=== PATIENT | female | born 1975 | race Caucasian/White ===

== ENCOUNTER 2017-04-24 05:05 | Inpatient (IN) | payer OTHER ==
[~2017-04-24] VITALS: Ht 170.2 cm; Wt 142.1 kg
[2017-04-24] VITALS (8 sets, daily range): BP systolic 111–133; BP diastolic 47–81
--- NOTE | ~2017-04-24 | S ---
[facility] [place] [address] SURGICAL PATH RPT PROCEDURE Name: MOLLY KU Room #: 416-P [facility] IN M.R.#: [id number] Admission: 04/24/17 Date of : 71 Discharge: 04/25/17 Report #: [id number] Path Case #: [id number] PATHOLOGY REPORT COLLECTION DATE: 04/24/2017 RECEIVED DATE: 04/24/2017 SUBMITTING PHYS: Dr. Jessica Velez OTHER PHYS: Dr. Espinoza Wei SPECIMEN(S) RECEIVED: A.Gastric sleeve * * * * * * * * * * * * FINAL DIAGNOSIS: "Gastric sleeve", partial gastrectomy: - Gastric mucosa, submucosa and muscular wall with multiple fundic gland polyps; no dysplasia seen. (CLW:alex; 04/27/2017) PATHOLOGIST: Marisa Adames M.D. REPORT ELECTRONICALLY SIGNED BY: Marisa Adames M.D. DATE/TIME: 04/27/2017 21:23 * * * * * * * * * * * * GROSS PATHOLOGY: Received in formalin labeled "Molly Ku, gastric sleeve" is a partial gastrectomy specimen measuring 22.5 x 6.5 x 2.6 cm. There is a staple line measuring 18.2 cm in length on one aspect. The staple line is removed, and the specimen is opened to reveal a kasper-brown mucosal surface with prominent folding, and two polyps which measure 0.3 x 0.2 x 0.2 cm and 0.7 x 0.6 x 0.5 cm. Additionally present is a 5.0 x 4.6 cm slightly hemorrhagic area on the mucosa. No perforations or other abnormalities are identified. Telecommunications Field Engineer sections of the specimen are submitted as follows: A1 smaller polyps submitted entirely A2 larger polyp, bisected A3 additional route sales representative mucosa with hemorrhage [place] [place] CLINICAL HISTORY: Morbid obesity INITIAL CPT CODE(S): A; 14469 [facility] at [address] [address] SURGICAL PATH RPT PROCEDURE Name: MOLLY KU Room #: 416-[facility] IN M.R.#: [id number] Admission: 04/24/17 Date of : 71 Discharge: 04/25/17 Report #: [id number] Path Case #: [id number] [address], [place] [address] Technical services performed by [facility] at [address] [place] [address], [address] [address]. [facility] [address] [address] PHONE: [phone] DIRECTOR: Larry Slater M.D. * * * END OF REPORT * * *
--- NOTE | ~2017-04-24 | O ---
[facility] [place] [address] OPERATIVE REPORT Name: MOLLY KU Room #: 416-P [facility] IN M.R.#: [id number] Admission: 04/24/17 Attend Phys: Jessica Velez MD, Discharge: Date of : 71 Report #: [id number] THIS REPORT FOR: //name// CC: Federico Velez DATE OF SERVICE: 04/24/2017 PREOPERATIVE DIAGNOSES: 1. Hypertension. 2. Gastroesophageal reflux disease. 3. Hypercholesterolemia. 4. Chronic pain syndrome. 5. Depression with anxiety. 6. Asthma. 7. Morbid obesity with a BMI of 50.87. POSTOPERATIVE DIAGNOSES: 1. Hypertension. 2. Gastroesophageal reflux disease. 3. Hypercholesterolemia. 4. Chronic pain syndrome. 5. Depression with anxiety. 6. Asthma. 7. Morbid obesity with a BMI of 50.87. PROCEDURES PERFORMED: 1. Laparoscopic sleeve gastrectomy. 2. Thorough esophagogastroduodenoscopy (EGD). SURGEON: Jessica Velez M.D. FORK OPERATOR: Espinoza Kelly M.D. ANESTHESIA: General endotracheal anesthesia. ESTIMATED BLOOD LOSS: Minimal (less than 10 mL). COMPLICATIONS: None appreciated. SPECIMENS: Lateral two-thirds of the gastric resection specimen to pathology. INDICATIONS: The patient is a 42-year-old morbidly obese female who has been seen for her desire for weight loss surgery as she has had a very long history of obesity and has tried numerous weight loss attempts, all to no avail. The patient has greater than 100 pounds over her ideal body weight with a BMI [facility] [address] [place] [address] OPERATIVE REPORT Name: MOLLY KU Room #: 416-P ADM IN M.R.#: [id number] Admission: 04/24/17 Attend Phys: Jessica Velez MD, Discharge: Date of : 71 Report #: [id number] of greater than 50 and carries numerous comorbid conditions associated with her obesity as delineated above. The patient has been seen by her primary care physician as well as by a benefits officer and a psychologist who have all evaluated her and cleared her to proceed forward with bariatric surgery for weight loss and assistance with resolution of her comorbid conditions. She has also undergone numerous months of physician supervised diet and exercise under my guidance with no real weight loss thus far. Indication was, therefore, for the above-mentioned procedures today. DESCRIPTION OF PROCEDURE: After explaining the risks, benefits and alternatives of the procedure with the patient in detail in the preoperative holding area and obtaining written consent, the patient was brought to the operating room and placed supine on the operating room table. After conducting a thorough timeout procedure verifying correct patient and procedure, the patient was given general endotracheal anesthesia. Once adequate anesthesia was obtained, her SCDs were hooked up to pneumatic compression device. She was given a preoperative dose of antibiotics in line with the SCIP protocol. The patient's abdomen was then prepped and draped in standard surgical sterile fashion after positioning her in the low lithotomy position with her legs in the Yellofin stirrups. I began the procedure by performing a thorough EGD. The [employer] upper endoscope was used to intubate the oropharynx and was traversed down into the esophagus with ease. The pylorus was identified and intubated. The scope was advanced to the second portion of the duodenum. Slow and careful withdrawal of the EGD scope showed no evidence of duodenitis, gastritis, esophagitis, mass lesions or ulcerations. A retroflexion view of the scope within the gastric lumen showed no evidence of a hiatal hernia. The scope was then straightened out until its tip was at the level of the pylorus where it was taped into position and the stomach was fully desufflated. I then turned my attention towards the operative portion of the procedure. After sterilely scrubbing, 5 mL of 0.5% Marcaine with epinephrine were used to anesthetize the skin in the right mid abdomen and midclavicular line in a subcostal location. A #15 bladed scalpel was used to create a 1.5 cm transverse skin incision at this location. A 15 mm Visiport was then placed over 0 degree 5 mm laparoscope and was introduced through this incision site. Once intraabdominal placement was verified visually, the obturator for the trocar and laparoscope were both removed and the abdomen was insufflated to 15 mmHg using carbon dioxide gas. The laparoscope was changed to a 5-mm 30-degree laparoscope, which was reintroduced through this trocar. The entire abdomen was evaluated to ensure no injury upon entry. I now was able to place 3 additional 5 mm trocars in the left mid abdomen. The first was placed 1 cm superior to the umbilicus and 2 cm to the patient's left, the next one was placed 5 cm lateral to that, and the final one was placed in the extreme left lateral flank. All 3 additional 5 mm trocars were placed under direct vision after anesthetizing the skin at each location with 5 mL of 0.5% Marcaine with epinephrine and I created small skin nicks using #15 bladed scalpel. The laparoscope was placed in the 5 mm port just to the left of the patient's umbilicus and she was placed in steep reverse Trendelenburg position. I then placed a Lexie liver retractor in [facility] [address] [place] [address] OPERATIVE REPORT Name: MOLLY KU Room #: 416-P ADM IN M.R.#: [id number] Admission: 04/24/17 Attend Phys: Jessica Velez MD, Discharge: Date of : 71 Report #: [id number] the subxiphoid location by anesthetizing the skin at that location with 5 mL of 0.5% Marcaine with epinephrine and I created a small skin yuly using #15 bladed scalpel. I then maneuvered the Lexie through this defect where it was positioned up under the left lobe of the liver and was held up against the posterior aspect of the anterior abdominal wall. This was then secured into position using the Iron Starcher [employer] Tenter Range Feeder device to stabilize it. We now had complete access to the stomach and hiatal regions and again saw no evidence of a hiatal hernia. I now began my dissection after identifying our landmarks. The vein of [place]row was identified overlying the pylorus. I measured 4 cm proximal to this location and began taking down the short gastric arteries from this location all the way up the greater curvature of the stomach using the Harmonic scalpel for hemostasis. Once I arrived upon the base of the left estefani, I dissected anteriorly up the left estefani completely freeing the stomach from all attachments. The stomach was then elevated and all posterior gastric attachments were taken down, ensuring that we were well away from both the posterior aspect of the stomach as well as the anterior aspect of the pancreas, so as to prevent injury from thermal spread. Now that the stomach was fully mobilized, I began the stapling portion of the procedure. The EGD scope was seen to run along the lesser curvature of the stomach. The [place] 60 mm stapler with a black load utilizing Baugh's Rupali-Strip buttressing material placed over it was entered into the abdomen through the 15 mm port. This first firing of the stapler was started at the location 4 cm proximal to the pylorus and was fired right along, but not extremely tight to the EGD scope, so as not to cause stricturing, especially at the incisura. An additional firing of another black load again utilizing Baugh's Rupali-Strip buttressing material was carried out following the scope as a 34-Tajik bougie. Five additional firings of green loads all utilizing Baugh's Rupali-Strip buttressing material were carried out following the scope as a bougie all the way up to the left estefani until the stomach was completely transected. The resection specimen was placed in the right upper quadrant and staple line was evaluated. We had complete hemostasis with no twisting to the sleeve whatsoever. I now utilized 10 mL of Tisseel on the Quantitative Medicinelospray device to coat the entirety of the staple line with fibrin glue. Once this was dry, normal saline was instilled in the upper abdomen and the EGD scope was reactivated and slowly withdrawn to evaluate for hemostasis in the lumen of the stomach. There was no bleeding identified whatsoever and gentle insufflation of the stomach allowed us to perform a leak test as the external staple line was held under the normal saline in the abdomen and there was no evidence of bubbling. The EGD scope was removed, passed off the field and I sterilely reentered the operative field once again. All normal saline was suctioned out and it ran clear throughout. I then removed the resection specimen through the 15 mm fascial incision under direct vision. One final evaluation of the staple line showed excellent orientation with no bleeding. The Lexie liver retractor was removed and the liver was healthy and uninjured. I then closed the 15 mm fascial incision using 0 PDS suture on a Frank-Bandar needle under direct vision. This was tied down. The abdomen was now fully desufflated and all ports removed under direct vision. A 4-[address] [place] [address] OPERATIVE REPORT Name: MOLLY KU Room #: 416-P [facility] IN M.R.#: [id number] Admission: 04/24/17 Attend Phys: Jessica Velez MD, Discharge: Date of : 71 Report #: [id number] Monocryl was used in a standard subcuticular fashion for all skin incisions and Dermabond glue was applied to all skin wounds. The corner of the resection specimen had been removed, was trimmed away and normal saline was passively instilled into the resection specimen yielding 1850 mL in the resection specimen itself. At the end of the procedure, all instrument, needle and sponge counts were correct. The patient tolerated the procedure without incident where she was awakened in the operating room and transitioned to the recovery room in stable condition with no apparent complications. <ELECTRONICALLY SIGNED> By: Jessica Velez MD, FACS 04/24/17 1529 1411 1438 Jessica Velez MD, FACS /nt
[~2017-04-24 05:05] MED LIST: ALDACTONE25 MG PO; CARVEDILOL12.5 MG PO; CHILDREN MULTI1 EACH PO; CLARITIN10 MG PO; DEMADEX20 MG PO; FLUOXETINE HCL40 MG PO; HYDROXYZINE HCL25 M1 PO; HYDROXYZINE HCL25 M2 PO; IRON325 PO; LIPITOR 20 MG T20 M1 PO; LISINOPRIL5 MG PO; LOPERAMIDE 2 MG2 M1 PO; MELATONIN3 MG PO; METHOCARBAMOL750 MG PO; MI-ACID80 MG PO; MUCINEX TA600 MG/TA2 PO; NEURONTIN 300300 M1 PO; PANTOPRAZOLE SO40 M1 PO; PERCOCET PO; PHENERGAN 25 MG25 M1 PO; POTASSIUM20 PO; PROAIR HFA8.5 GM INH; SINGULAIR 10 MG10 M1 PO; SYMBICORT80 MCG/4.1 INH; TOPAMAX50 MG PO; TRAZODONE 150150 M1 PO; TRAZODONE HCL50 MG PO; TUMS PO; TYLENOL325 MG PO; WELLBUTRIN SR150 MG PO
[2017-04-24 09:12] LABS: CALCIUM 9.5 mg/dL (8.5-10.1); CREATININE 1.4 mg/dL (0.6-1.0); POTASSIUM 3.9 mmol/L (3.5-5.1)
[2017-04-24] MEDS ORDERED: OXYCODONE H5 MG/5 ML PO (12:14)
[2017-04-24] MEDS ORDERED: ZOFRAN ODT4 MG DISSOLVE (12:14)
[2017-04-25 03:31] VITALS: BP 146/107
[2017-04-25 04:43] LABS: CALCIUM 8.8 mg/dL (8.5-10.1); POTASSIUM 4.5 mmol/L (3.5-5.1)
[2017-04-25 06:00] VITALS: BP 154/103
[2017-04-25 06:02] LABS: HEMATOCRIT 38.5 % (37.0-47.0); HEMOGLOBIN 12.8 gm/dL (12.0-15.0); MCH 29.5 pg (26.0-34.0); MCHC 33.2 g/dL (28.0-37.0); MCV 88.6 fL (80.0-100.0); RBC 4.34 mil/uL (4.20-5.00); RDW 13.4 % (10.5-14.5); WBC 10.5 thou/uL (4.0-11.0)
[2017-04-25 08:10] VITALS: BP 153/95
[2017-04-25 10:48] VITALS: BP 153/95
== END 2017-04-25 12:25 | disposition home or self-care (01) | DRG 621 ==
LOC: OR 05:05 → TBA 05:06 → OR 08:09 → 4N 13:26
PROVIDERS: Surgery
PROC: 0DB64Z3 Excision of Stomach, Percutaneous Endoscopic Approach, Vertical (ICD-10-PCS; principal; 2017-04-24)
PROC: 0DJ08ZZ Inspection of Upper Intestinal Tract, Via Natural or Artificial Opening Endoscopic (ICD-10-PCS; principal; 2017-04-24)
DX: E66.01 Morbid (severe) obesity due to excess calories (principal); I10 Essential (primary) hypertension; K21.9 Gastro-esophageal reflux disease without esophagitis; E78.00 Pure hypercholesterolemia, unspecified; G89.4 Chronic pain syndrome; F32.9 Major depressive disorder, single episode, unspecified; F41.9 Anxiety disorder, unspecified; M54.5 Low back pain; J45.909 Unspecified asthma, uncomplicated; Z88.6 Allergy status to analgesic agent; Z68.43 Body mass index [BMI] 50.0-59.9, adult; Z91.013 Allergy to seafood
CPT/HCPCS: 10790; 50010; 50101; 50222; 50249; 50386; 50555; 50739; 50740; 50962; 51437; 52182; 52265; 53307; 53311; 54022; 54118; 56462; 56525; 56526; 57092; 62110; 62900; 70005

== ENCOUNTER 2017-05-11 17:00 | Inpatient (IN) | payer OTHER ==
[~2017-05-11] VITALS: Ht 170.2 cm; Wt 158.8 kg
--- NOTE | ~2017-05-11 | EKG ---
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
[~2017-05-11 17:00] MED LIST changes: +OXYCODONE H5 MG/5 ML PO; +ZOFRAN ODT4 MG DISSOLVE
[2017-05-11 17:02] VITALS: BP 101/64
[2017-05-11 17:47] LABS: ABSOLUTE NEUTROPHILS 4.9 thou/uL (1.4-8.2); BASOPHILS 0.6 % (0.0-2.0); EOSINOPHILS 2.6 % (0.0-3.0); HEMATOCRIT 38.5 % (37.0-47.0); HEMOGLOBIN 12.7 gm/dL (12.0-15.0); LYMPHOCYTES 32.5 % (24.0-44.0); MCH 29.4 pg (26.0-34.0); MCHC 33.1 g/dL (28.0-37.0); MCV 88.9 fL (80.0-100.0); MONOCYTES 6.4 % (1.0-8.0); PLATELET COUNT 208 thou/uL (150-400); POLYS 57.9 % (36.0-66.0); RBC 4.33 mil/uL (4.20-5.00); RDW 13.3 % (10.5-14.5); WBC 8.4 thou/uL (4.0-11.0)
[2017-05-11 17:48] LABS: MANUAL DIFF NO
[2017-05-11 17:56] LABS: CALCIUM 9.3 mg/dL (8.5-10.1); CREATININE 1.1 mg/dL (0.6-1.0); POTASSIUM 3.8 mmol/L (3.5-5.1)
[2017-05-11 18:02] LABS: ALBUMIN 3.5 g/dL (3.4-5.0); TOTAL BILIRUBIN 0.7 mg/dL (<0.1-1.0); TOTAL PROTEIN 7.5 g/dL (6.4-8.2)
[2017-05-11 19:32] VITALS: BP 95/48
[2017-05-11 19:53] VITALS: BP 112/59
[2017-05-12 04:19] VITALS: BP 108/58
[2017-05-12 08:00] VITALS: BP 116/61
[2017-05-12 16:00] VITALS: BP 131/63
[2017-05-12 19:15] VITALS: BP 117/72
[2017-05-12 22:41] LABS: AMYLASE 76 U/L (25-115)
[2017-05-13 03:02] LABS: URINE BILIRUBIN NEGATIVE (Negative); URINE BLOOD NEGATIVE (Negative); URINE COLOR YELLOW; URINE GLUCOSE-RANDOM* NEGATIVE (Negative); URINE KETONES NEGATIVE (Negative); URINE LEUKOCYTES-REFLEX NEGATIVE (Negative); URINE PROTEIN (DIPSTICK) NEGATIVE (Negative); URINE UROBILINOGEN 0.2 E.U./dl (0.2-1.0)
[2017-05-13 03:51] VITALS: BP 119/71
[2017-05-13 06:10] LABS: ABSOLUTE NEUTROPHILS 2.2 thou/uL (1.4-8.2); BASOPHILS 0.8 % (0.0-2.0); EOSINOPHILS 3.8 % (0.0-3.0); HEMATOCRIT 35.4 % (37.0-47.0); HEMOGLOBIN 11.8 gm/dL (12.0-15.0); LYMPHOCYTES 42.4 % (24.0-44.0); MCH 29.4 pg (26.0-34.0); MCHC 33.3 g/dL (28.0-37.0); MCV 88.4 fL (80.0-100.0); MONOCYTES 7.4 % (1.0-8.0); PLATELET COUNT 181 thou/uL (150-400); POLYS 45.6 % (36.0-66.0); RBC 4.01 mil/uL (4.20-5.00); RDW 13.5 % (10.5-14.5); WBC 4.9 thou/uL (4.0-11.0)
[2017-05-13 06:16] LABS: MANUAL DIFF NO
[2017-05-13 06:28] LABS: ALBUMIN 2.9 g/dL (3.4-5.0); CALCIUM 9.1 mg/dL (8.5-10.1); CREATININE 0.9 mg/dL (0.6-1.0); MAGNESIUM 2.1 mg/dL (1.8-2.4); POTASSIUM 4.1 mmol/L (3.5-5.1); TOTAL BILIRUBIN 0.4 mg/dL (<0.1-1.0); TOTAL PROTEIN 6.6 g/dL (6.4-8.2)
[2017-05-13 07:43] VITALS: BP 100/61
[2017-05-13 16:02] VITALS: BP 110/62
[2017-05-13] MEDS ORDERED: MELATONIN1 MG PO (18:26)
[2017-05-13] MEDS ORDERED: CARAFATE 11 GM/10 M1 PO (18:26)
[2017-05-13] MEDS ORDERED: ENOXAPARIN40 MG/0.1 SUBQ (18:26)
[2017-05-13] MEDS ORDERED: NYSTATIN100000 UNI SW&SWALLOW (18:26)
[2017-05-13] MEDS ORDERED: NF PO (18:26)
[2017-05-13] MEDS ORDERED: FAMOTIDINE20 MG/2 M2 IV PUSH (18:26)
[2017-05-13 19:32] VITALS: BP 95/57
[2017-05-14] VITALS (7 sets, daily range): BP systolic 103–126; BP diastolic 52–76
== END 2017-05-14 18:18 | DRG 312 ==
LOC: ER 17:00 → 4S 19:06 → EROBS 19:06 → 4S 19:33
PROVIDERS: Internal Medicine; Physician Assistant
DX: I95.1 Orthostatic hypotension (principal); K85.90 Acute pancreatitis without necrosis or infection, unspecified; I42.9 Cardiomyopathy, unspecified; F31.30 Bipolar disorder, current episode depressed, mild or moderate severity, unspecified; Z68.43 Body mass index [BMI] 50.0-59.9, adult; E86.0 Dehydration; R13.10 Dysphagia, unspecified; K21.9 Gastro-esophageal reflux disease without esophagitis; J45.909 Unspecified asthma, uncomplicated; E78.5 Hyperlipidemia, unspecified; E66.01 Morbid (severe) obesity due to excess calories; F41.9 Anxiety disorder, unspecified; I11.0 Hypertensive heart disease with heart failure; I50.9 Heart failure, unspecified; Z90.3 Acquired absence of stomach [part of]; Z90.49 Acquired absence of other specified parts of digestive tract; Z86.711 Personal history of pulmonary embolism; Z79.01 Long term (current) use of anticoagulants; Z79.899 Other long term (current) drug therapy; Z88.6 Allergy status to analgesic agent; Z91.013 Allergy to seafood
CPT/HCPCS: 10100